=== PATIENT | female | born 1930 | race Caucasian/White ===

== ENCOUNTER → 2016-09-02 | Outpatient (CLI) | payer MEDICARE, BC ==
[~2016-09-02] MED LIST: ANTIVERT PO; HCTZ PO; IBUPROFEN PO; MELATONIN PO; MELATONIN3 MG PO; MULTIVITAMIN W/1 TAB PO; PREVACID PO; VALARIAN ROOT PO; VISTARIL PO; ZOCOR PO; [UNRECOGNIZED DRUG - OTHER] PO
--- NOTE | ~2016-09-02 | BD1 ---
[facility] A Service of [facility] & [facility] RADIOLOGY TEXT RESULTS PATIENT: ADONAY KOCH LOCATION: [facility] : 34 UNIT #: [id number] AGE: [address]: ANABEL REEDER MD SEX: F ORDER DR: [id number] [facility] [address] [facility] [place], [place] [address] [id number] O MR#: [id number] Acc #: [id number] NAME: ADONAY KOCH : 1930 SEX: F STUDY DATE/TIME: 09/02/2016 11:48 UNIT: [facility] ROOM: STUDY DESCRIPTION: Dexa Bone Dens 1+ Site Attending Physician: Anabel Reeder M.D. Referring Physician: Anabel Reeder M.D. Ordering Physician: Anabel Reeder M.D. Primary Care Physician: Anabel Reeder M.D. MEDICAL IMAGING REPORT This report is preliminary unless electronic signature is present EXAM Bone densitometry. DATE OF EXAM 09/02/2016 CLINICAL HISTORY 86-year-old postmenopausal female with history of osteoporosis. FINDINGS The bone mineral density of the lumbar spine (L1-L4) is calculated 0.846 g/sq cm. This correlates with a T-score of -1.8 and a Z score of 1.0. This is classified as osteopenia. There has been a 7.7% increase in the bone mineral density of the lumbar spine since the 2009 comparison. The bone mineral density in the left proximal femoral neck region is calculated at 0.548 g/sq cm. This correlates to a T-score of -2.7 and a Z-score of -0.2. This is classified as osteoporosis. For trending purposes, the total bone mineral density of the proximal left femur has increased by 6% since the 2009 comparison. IMPRESSION 1. Osteoporosis. 2. Increased bone mineral density since a 2009 comparison. Dictated by... Odell Case M.D. THIS IS AN ELECTRONICALLY VERIFIED REPORT Odell Case M.D. at 09/02/2016 5:55 PM FARIDEH/rebecca TD: 09/02/2016 17:20 [facility]. [facility] A Service of [facility] & [facility] RADIOLOGY TEXT RESULTS PATIENT: ADONAY KOCH [id number] 34 UNIT #: [id number] AGE: [address]: ANABEL REEDER MD SEX: F ORDER DR: JOB #: [id number] MEDICAL IMAGING REPORT Page 1 of 1 COPY
== END | disposition home or self-care (01) ==
LOC: CWCC 11:28
DX: M81.0 Age-related osteoporosis without current pathological fracture (principal)
CPT/HCPCS: 77080